=== PATIENT | female | born 1965 | race Caucasian/White ===

== ENCOUNTER 2017-11-25 22:46 | Observation (INO) | payer OTHER ==
--- NOTE | 2017-11-25 23:10 | ED ---
General Adult HPI - General Chief complaint: Chest Pain Stated complaint: chest pain Time Seen by Provider: 11/25/17 23:01 Source: patient, EMS, RN notes reviewed, old records reviewed Mode of arrival: EMS Limitations: no limitations - History of Present Illness Initial comments: This is a 52-year-old female to the ER for event or chest pain. Patient has anterior chest pain left-sided chest pain left jaw pain left back pain. Patient has history of smoking, history of cocaine abuse. Patient has recent history of stents secondary to chest pain and coronary artery disease. Patient' s pain started about 2-1/2 3 hours prior to arrival in the ER and has been consistent. The pain was worse when he came on is little bit better now no diaphoresis no shortness of breath no nausea or vomiting. Patient's pain are now is consistent, just left side of her chest. When it came on it did radiate to her jaw and back. That has resolved - Related Data Home Medications Medication Instructions Recorded Confirmed Acetaminophen Tab [Tylenol Tab] 650 mg PO Q4H PRN MDD 6 tablets 11/25/17 Albuterol Nebulized [Ventolin 2.5 mg INHALATION RT-Q4H PRN 11/25/17 11/26/17 Nebulized] Atorvastatin [Lipitor] 40 mg PO HS 11/25/17 11/26/17 Budesonide/Formoterol Fumarate 2 puff INHALATION RT-DAILY@30 11/25/17 11/26/17 [Symbicort 160-4.5 Mcg Inhaler] Bumetanide 2 mg PO DAILY@0630 PRN 11/25/17 11/26/17 Calcium/Magnesium 2 tab PO TID PRN 11/25/17 11/26/17 Cetirizine HCl [Zyrtec] 10 mg PO DAILY@0630 11/25/17 11/26/17 Clopidogrel [Plavix] 75 mg PO DAILY@0630 11/25/17 11/26/17 DULoxetine HCL [Cymbalta] 60 mg PO BID@0630,1700 11/25/17 11/26/17 Fluticasone Nasal Matthews [Flonase 1 - 2 spray EA NOSTRIL DAILY PRN 11/25/1711/26 Nasal Matthews] Ibuprofen [Motrin] 600 mg PO Q6H PRN 11/25/17 11/26/17 Isosorbide Mononitrate ER [Imdur] 60 mg PO DAILY@0630 11/25/17 11/26/17 Methadone HCl [Methadone Intensol] 115 mg PO QAM 11/25/17 11/26/17 Metoprolol Tartrate [Lopressor] 12.5 mg PO BID@0630,1700 11/25/17 11/26/17 Multivitamins, Thera [Multivitamin 1 tab PO DAILY 11/25/17 11/26/17 (formulary)] Nitroglycerin Sl Tabs [Nitrostat] 0.4 mg SUBLINGUAL Q5M PRN 11/25/17 11/26/17 OXcarbazepine [Trileptal] 300 mg PO TID@0630,1530,2100 11/25/17 11/26/17 Ondansetron HCl [Zofran] 8 mg PO Q6H PRN 11/25/17 11/26/17 PHENobarbital [Luminal] 32.4 mg PO TID@0630,1530,2100 11/25/17 11/26/17 Potassium Chloride ER [K-Dur 10] 10 meq PO DAILY@2100 11/25/17 11/26/17 Ranitidine HCl [Zantac] 150 mg PO BID@0630,1700 11/25/17 11/26/17 Thiamine [Vitamin B-1] 100 mg PO DAILY@1500 11/25/17 11/26/17 Trimethobenzamide [Tigan] 300 mg PO Q6H PRN 11/25/17 11/26/17 traZODone HCL [Desyrel] 50 - 150 mg PO HS 11/25/17 11/26/17 Allergies Allergy/AdvReac Type Severity Reaction Status Date / Time Penicillins Allergy Anaphylaxis Verified 11/26/17 00:26 divalproex sodium AdvReac "ears Verified 11/26/17 00:26 [From Depakote] sensitive" Review of Systems ROS Statement: Those systems with pertinent positive or pertinent negative responses have been documented in the HPI. ROS Other: All systems not noted in ROS Statement are negative. Past Medical History Past Medical History: Chest Pain / Angina, Hyperlipidemia, Hypertension, Seizure Disorder Additional Past Medical History / Comment(s): mitral valve leak History of Any Multi-Drug Resistant Organisms: None Reported Past Surgical History: Cholecystectomy, Heart Catheterization, Heart Catheterization With Stent, Orthopedic Surgery Additional Past Surgical History / Comment(s): jaw surgery 1997 Past Psychological History: Anxiety, Bipolar, Depression Smoking Status: Current every day smoker Past Alcohol Use History: None Reported Past Drug Use History: Cocaine - Past Family History Mother Additional Family Medical History / Comment(s): 3 bypasses, 18 stents Sister(s) Additional Family Medical History / Comment(s): of PAD at 45 Father Additional Family Medical History / Comment(s): lung disease General Exam Limitations: no limitations General appearance: alert, in no apparent distress, anxious Head exam: Present: atraumatic, normocephalic, normal inspection Eye exam: Present: normal appearance, PERRL, EOMI. Absent: scleral icterus, conjunctival injection, periorbital swelling ENT exam: Present: normal exam, mucous membranes moist Neck exam: Present: normal inspection. Absent: tenderness, meningismus, lymphadenopathy Respiratory exam: Present: normal lung sounds bilaterally, wheezes. Absent: respiratory distress, rales, rhonchi, stridor Cardiovascular Exam: Present: regular rate, normal rhythm, normal heart sounds. Absent: systolic murmur, diastolic murmur, rubs, gallop, clicks GI/Abdominal exam: Present: soft, normal bowel sounds. Absent: distended, tenderness, guarding, rebound, rigid Extremities exam: Present: normal inspection, full ROM, normal capillary refill. Absent: tenderness, pedal edema, joint swelling, calf tenderness Back exam: Present: normal inspection Neurological exam: Present: alert, oriented X3, CN II-XII intact Psychiatric exam: Present: normal affect, normal mood Skin exam: Present: warm, dry, intact, normal color. Absent: rash Course Vital Signs 11/25/17 11/25/17 11/26/17 22:48 23:54 00:02 Temperature 99.0 F Pulse Rate 65 54 L 60 Respiratory 16 Rate Blood Pressure 101/58 O2 Sat by Pulse 96 Oximetry 11/26/17 00:14 Temperature 98.0 F Pulse Rate 57 L Respiratory 16 Rate Blood Pressure 104/58 O2 Sat by Pulse 98 Oximetry - Reevaluation(s) Reevaluation #1: 11/25/17 23:27 Patient states she did have recent heart catheterization with stent back in May Reevaluation #2: 11/25/17 23:27 Patient continues with chest pain will continue to repeat EKG EKG Findings - EKG Comments: EKG Findings:: EKG shows normal sinus rhythm rate of 63, SD 122, QRS 64, QTc 448 less than [address] elevation inferiorly. repeat. EKG shows normal sinus rhythm rate of 59, SD 144, QRS 66, QTc 449 same morphology as prior EKG. Repeat. EKG shows normal sinus rhythm of 60, SD 180, QRS 70, QTc 462 Medical Decision Making - Medical Decision Making 52 female to ER with chest pain. Troponin negative EKG and negative patient will be admitted for cardiac observation - Lab Data Result diagrams: 11/27/17 06:28 11/25/17 22:57 Lab Results 11/25/17 11/25/17 11/25/17 Range/Units 22:57 22:57 22:57 WBC 10.2 (3.8-10.6) k/uL RBC 4.27 (3.80-5.40) m/uL Hgb 12.1 (11.4-16.0) gm/dL Hct 37.9 (34.0-46.0) % MCV 88.7 (80.0-100.0) fL MCH 28.4 (25.0-35.0) pg MCHC 32.0 (31.0-37.0) g/dL RDW 13.9 (11.5-15.5) % Plt Count 239 (150-450) k/uL Neutrophils % 62 % Lymphocytes % 27 % Monocytes % 6 % Eosinophils % 3 % Basophils % 1 % Neutrophils # 6.3 (1.3-7.7) k/uL Lymphocytes # 2.7 (1.0-4.8) k/uL Monocytes # 0.7 (0-1.0) k/uL Eosinophils # 0.3 (0-0.7) k/uL Basophils # 0.1 (0-0.2) k/uL PT (9.0-12.0) sec INR (<1.2) APTT (22.0-30.0) sec Sodium 137 (137-145) mmol/L Potassium 4.7 (3.5-5.1) mmol/L Chloride 100 (98-107) mmol/L Carbon Dioxide 27 (22-30) mmol/L Anion Gap 10 mmol/L BUN 18 H (7-17) mg/dL Creatinine 0.80 (0.52-1.04) mg/dL Est GFR (MDRD) Af Amer >60 (>60 ml/min/1.73 sqM) Est GFR (MDRD) Non-Af >60 (>60 ml/min/1.73 sqM) Glucose 93 (74-99) mg/dL Calcium 8.6 (8.4-10.2) mg/dL Magnesium 2.1 (1.6-2.3) mg/dL Total Bilirubin 0.2 (0.2-1.3) mg/dL AST 37 H (14-36) U/L ALT 39 (9-52) U/L Alkaline Phosphatase 189 H (38-126) U/L Total Creatine Kinase 51 (30-135) U/L CK-MB (CK-2) 0.3 (0.0-2.4) ng/mL CK-MB (CK-2) Rel Index 0.6 Troponin I <0.012 (0.000-0.034) ng/mL Total Protein 7.8 (6.3-8.2) g/dL Albumin 3.5 (3.5-5.0) g/dL 11/25/17 Range/Units 22:57 WBC (3.8-10.6) k/uL RBC (3.80-5.40) m/uL Hgb (11.4-16.0) gm/dL Hct (34.0-46.0) % MCV (80.0-100.0) fL MCH (25.0-35.0) pg MCHC (31.0-37.0) g/dL RDW (11.5-15.5) % Plt Count (150-450) k/uL Neutrophils % % Lymphocytes % % Monocytes % % Eosinophils % % Basophils % % Neutrophils # (1.3-7.7) k/uL Lymphocytes # (1.0-4.8) k/uL Monocytes # (0-1.0) k/uL Eosinophils # (0-0.7) k/uL Basophils # (0-0.2) k/uL PT 10.0 (9.0-12.0) sec INR 1.0 (<1.2) APTT 24.3 (22.0-30.0) sec Sodium (137-145) mmol/L Potassium (3.5-5.1) mmol/L Chloride (98-107) mmol/L Carbon Dioxide (22-30) mmol/L Anion Gap mmol/L BUN (7-17) mg/dL Creatinine (0.52-1.04) mg/dL Est GFR (MDRD) Af Amer (>60 ml/min/1.73 sqM) Est GFR (MDRD) Non-Af (>60 ml/min/1.73 sqM) Glucose (74-99) mg/dL Calcium (8.4-10.2) mg/dL Magnesium (1.6-2.3) mg/dL Total Bilirubin (0.2-1.3) mg/dL AST (14-36) U/L ALT (9-52) U/L Alkaline Phosphatase (38-126) U/L Total Creatine Kinase (30-135) U/L CK-MB (CK-2) (0.0-2.4) ng/mL CK-MB (CK-2) Rel Index Troponin I (0.000-0.034) ng/mL Total Protein (6.3-8.2) g/dL Albumin (3.5-5.0) g/dL - Radiology Data Radiology results: report reviewed (S x-rays negative for acute disease), image reviewed Critical Care Time Critical Care Time: Yes Total Critical Care Time: 31 Disposition Clinical Impression: Chest pain Disposition: ADMITTED IP TO THIS [facility] Condition: Undetermined
[2017-11-25 23:19] LABS: Basophils # (A) 0.1 k/uL (0-0.2); Basophils % (A) 1 %; Eosinophils # (A) 0.3 k/uL (0-0.7); Eosinophils % (A) 3 %; HCT 37.9 % (34.0-46.0); HGB 12.1 gm/dL (11.4-16.0); Lymphocytes # (A) 2.7 k/uL (1.0-4.8); Lymphocytes % (A) 27 %; MCH 28.4 pg (25.0-35.0); MCV 88.7 fL (80.0-100.0); Mean Platelet Volume 8.7; Monocytes # (A) 0.7 k/uL (0-1.0); Monocytes % (A) 6 %; Neutrophils # (A) 6.3 k/uL (1.3-7.7); Neutrophils % (A) 62 %; Platelet Count 239 k/uL (150-450); RBC 4.27 m/uL (3.80-5.40); RDW 13.9 % (11.5-15.5); WBC 10.2 k/uL (3.8-10.6)
[2017-11-25 23:27] LABS: Partial Thromboplastin Time 24.3 sec (22.0-30.0)
[2017-11-25 23:28] LABS: ALT 39 U/L (9-52); AST 37 U/L (14-36); Albumin 3.5 g/dL (3.5-5.0); Alkaline Phosphatase 189 U/L (38-126); Anion Gap 10 mmol/L; Blood Urea Nitrogen 18 mg/dL (7-17); Calcium 8.6 mg/dL (8.4-10.2); Carbon Dioxide 27 mmol/L (22-30); Chloride 100 mmol/L (98-107); Glucose 93 mg/dL (74-99); Magnesium 2.1 mg/dL (1.6-2.3); Potassium 4.7 mmol/L (3.5-5.1); Sodium 137 mmol/L (137-145); Total Bilirubin 0.2 mg/dL (0.2-1.3); Total Protein 7.8 g/dL (6.3-8.2)
[2017-11-25] MEDS ORDERED: MORPHINE SULFATE 4 MG/ML SYRINGE IV PRN (23:29)
[2017-11-25] MEDS ORDERED: NITROGLYCERIN SL TABS 0.4 MG TAB SUBLINGUAL PRN (23:29)
[2017-11-25] MEDS ORDERED: HEPARIN SODIUM,PORCINE 5,000 UNIT/ML 1 ML VIAL IV PRN (23:29)
[2017-11-25] MEDS ORDERED: ASPIRIN 81 MG PO STA (23:29)
[2017-11-25] MEDS ORDERED: HEPARIN SODIUM,PORCINE 5,000 UNIT/ML 1 ML VIAL IV ONE (23:29)
[2017-11-25] MEDS ORDERED: IPRATROPIUM-ALBUTEROL 3 ML NEB INHALATION STA (23:30)
[2017-11-25] MEDS ORDERED: HEPARIN SOD,PORK IN 0.45% NACL 25,000 UNIT in 0.45% NACL 1 500ML.BAG IV SCH (23:30)
--- NOTE | 2017-11-25 23:41 | XR ---
EXAM: XR Chest, 2 Views CLINICAL HISTORY: Reason: Chest Pain TECHNIQUE: Frontal and lateral views of the chest. COMPARISON: No relevant prior studies available. FINDINGS: Lungs: Prominent pulmonary vascularity. Mild basilar opacities, possible atelectasis. No confluent consolidation. Pleural space: Unremarkable. No pneumothorax. Heart: Unremarkable. Mediastinum: Unremarkable. Bones/joints: Unremarkable. IMPRESSION: Prominent pulmonary vascularity. Mild basilar opacities, possible atelectasis.
[2017-11-25 23:42] LABS: Creatine Kinase 51 U/L (30-135)
[2017-11-25] MEDS: SODIUM CHLORIDE 0.9% 1,000 ML IV SCH (23:47)
[2017-11-25 23:55] LABS: Creatine Kinase MB 0.3 ng/mL (0.0-2.4); Troponin I <0.012 ng/mL (0.000-0.034)
[2017-11-26 00:39] VITALS: BMI 26.6
[2017-11-26] MEDS: MORPHINE SULFATE 2 MG/ML SYRINGE IV PRN ×4 (01:02→20:59)
[2017-11-26 05:31] LABS: Mean Platelet Volume 8.4; Platelet Count 165 k/uL (150-450)
[2017-11-26 05:43] LABS: Cholesterol 97 mg/dL (<200); HDL Cholesterol 33 mg/dL (40-60); LDL Cholesterol,Calculated 41 mg/dL (0-99); Triglycerides 114 mg/dL (<150)
[2017-11-26 05:59] LABS: Creatine Kinase 44 U/L (30-135)
[2017-11-26 06:13] LABS: Creatine Kinase MB <0.2 ng/mL (0.0-2.4); Troponin I <0.012 ng/mL (0.000-0.034)
--- NOTE | 2017-11-26 07:31 | HP ---
HISTORY AND PHYSICAL CHIEF COMPLAINT: A 52-year-old white female with chest pain. HISTORY OF PRESENT ILLNESS: A 52-year-old white female who came to the ER for chest pain, anterior left-sided chest pain, jaw pain, left jaw pain and left back pain. She has history of smoking history, history of cocaine abuse, history of stents. Chest pain with coronary artery disease started 2-1/2 hours ago, came to the ER in constant pain. Came to the ER, was admitted for chest pain to rule out myocardial infarction. Cardiology consult. HOME MEDICATIONS: Home medications include: 1. Tylenol. 2. Ventolin. 3. Lipitor. 4. Symbicort. 5. Bumetanide. 6. Magnesium. 7. Zyrtec. 8. Plavix. 9. Cymbalta. 10.Flonase. 11.Motrin. 12.Imdur. 13.Methadone. 14.Lopressor. 15.Trileptal,. 16.Zofran. 17.K-Dur. 18.Zantac. 19.Vitamin B1. 20.Tigan. 21.Desyrel. ALLERGIES: PENICILLIN, DEPAKOTE. REVIEW OF SYSTEMS: Fourteen-point review of systems negative except for mentioned in HPI. PAST MEDICAL HISTORY: Hypertension, dyslipidemia, seizure disorder, atypical chest pain, mitral valve leak, heart surgery, catheterization, cholecystectomy, stent, orthopedic surgery, history of anxiety, bipolar, depression, jaw surgery. Current everyday smoker. Uses cocaine. PHYSICAL EXAMINATION: Temperature 99, pulse 65, respiratory rate 16 to 18, blood pressure low 100s over 50s to 60s, O2 of 96% on room air. HEENT: Normocephalic, atraumatic. OPHTHALMOLOGIC: Pupils equal, round, reactive to light and accommodation. NEUROLOGIC: Alert and oriented x3. LUNGS: Show normal lung sounds. Scattered rhonchi. HEART: S1, S2 without any murmurs, rubs or gallops GI: Soft, nontender. EXTREMITIES: No cyanosis, clubbing, edema. NEUROLOGIC: Alert and oriented x3. PSYCH: Fair mood and affect. ASSESSMENT: 1. Atypical chest pain. 2. History of cocaine abuse. Multiple labs are reviewed, rule out myocardial infarction. When is cleared by Cardiology, she will be able to be discharged home. MMODL / IJN: [id number] /
[2017-11-26] MEDS ORDERED: TRIMETHOBENZAMIDE 300 MG CAP PO PRN (08:27)
[2017-11-26] MEDS ORDERED: MAGNESIUM PO PRN (08:27)
[2017-11-26] MEDS ORDERED: FLUTICASONE 50MCG/SPRAY NASAL 16GM EA NOSTRIL PRN (08:27)
[2017-11-26] MEDS ORDERED: CALCIUM PO PRN (08:27)
[2017-11-26] MEDS ORDERED: ONDANSETRON 4 MG TAB PO PRN (08:27)
[2017-11-26] MEDS ORDERED: BUMETANIDE 1 MG TAB PO PRN (08:27)
[2017-11-26] MEDS ORDERED: ACETAMINOPHEN TAB 325 MG TAB PO PRN (08:27)
[2017-11-26] MEDS ORDERED: ASPIRIN 325 MG TAB PO SCH (09:00)
[2017-11-26] MEDS: IPRATROPIUM-ALBUTEROL 3 ML NEB INHALATION PRN ×3 (09:14→19:39)
[2017-11-26] MEDS: SYMBICORT 160-4.5 MCG INHALER INHALATION SCH (09:14)
--- NOTE | 2017-11-26 09:33 | P.CRDCN ---
History of Present Illness Consult date: 11/26/17 History of present illness: Mrs. Fierro is a pleasant 52-year-old female with past medical history significant for hypertension, dyslipdiemia, coronary artery disease, anxiety and chronic drug and tobacco abuse. She states she snorts cocaine on a regular basis and smokes 6-8 cigarettes per day. She follows with a tobacco weigher in [place] Dr. Tavarez and states she recently had a catheterization in May of this year and also was told she has a 50% blockage. She complains of chest pain that started last night around 2029 with a tightness in her chest that radiated to her jaw, shoulder, left arm and back. She c/o associated shortness of breath, nausea and diaphoresis. She denies palpitations or dizziness. She is currently a resident at [facility] for drug rehabilitation. EKG on arrival reveals sinus mechanism with no acute ST or T-wave abnormalities. Chest xray reveals prominent pulmonary vascularity with mild basilar opacities, probably atelectasis. Laboratory data reviewed, hemoglobin 12.1, platelets 165, potassium 4.7, magnesium 2.1, creatinine 0.8, cardiac enzymes negative 2, LDL 41, HDL 33. Current cardiac medications include potassium 10 daily, Lopressor 12.5 mg twice a day, Imdur 60 mg daily, Plavix 75 mg daily, atorvastatin 40 mg daily. Review of Systems CONSTITUTIONAL: Denies fever. Denies chills. EYES: Denies blurred vision. Denies vision changes. Denies eye pain. EARS, NOSE, MOUTH & THROAT: Denies headache. Denies sore throat. Denies ear pain. CARDIOVASCULAR: Denies chest pain. Denies shortness of breath. Denies orthopnea. Denies PND. Denies palpitations. RESPIRATORY: Denies cough. GASTROINTESTINAL: Denies abdominal pain. Denies diarrhea. Denies constipation. Denies nausea. Denies vomiting. MUSCULOSKELETAL: Denies myalgias. INTEGUMENTARY: Denies pruitis. Denies rash. NEUROLOGIC: Denies numbness. Denies tingling. Denies weakness. PSYCHIATRIC: Denies anxiety. Denies depression. ENDOCRINE: Denies fatigue. Denies weight change. Denies polydipsia. Denies polyurina. GENITOURINARY: Denies burning, hematuria or urgency with micturation. HEMATOLOGIC: Denies history of anemia. Denies bleeding. Past Medical History Past Medical History: Chest Pain / Angina, Hyperlipidemia, Hypertension, Seizure Disorder Additional Past Medical History / Comment(s): mitral valve leak History of Any Multi-Drug Resistant Organisms: None Reported Past Surgical History: Cholecystectomy, Heart Catheterization, Heart Catheterization With Stent, Orthopedic Surgery Additional Past Surgical History / Comment(s): jaw surgery 1997 Past Anesthesia/Blood Transfusion Reactions: No Reported Reaction Date of Last Stent Placement:: Smoking Status: Current every day smoker - Past Family History Mother Additional Family Medical History / Comment(s): 3 bypasses, 18 stents Sister(s) Additional Family Medical History / Comment(s): of PAD at 45 Father Additional Family Medical History / Comment(s): lung disease Medications and Allergies Home Medications Medication Instructions Recorded Confirmed Type Acetaminophen Tab [Tylenol Tab] 650 mg PO Q4H PRN MDD 6 tablets 11/25/17 History Albuterol Nebulized [Ventolin 2.5 mg INHALATION RT-Q4H PRN 11/25/17 11/26/17 History Nebulized] Atorvastatin [Lipitor] 40 mg PO HS 11/25/17 11/26/17 History Budesonide/Formoterol Fumarate 2 puff INHALATION RT-DAILY@62911/25/17 History [Symbicort 160-4.5 Mcg Inhaler] Bumetanide 2 mg PO DAILY@0630 PRN 11/25/17 11/26/17 History Calcium/Magnesium 2 tab PO TID PRN 11/25/17 11/26/17 History Cetirizine HCl [Zyrtec] 10 mg PO DAILY@0630 11/25/17 11/26/17 History Clopidogrel [Plavix] 75 mg PO DAILY@0630 11/25/17 11/26/17 History DULoxetine HCL [Cymbalta] 60 mg PO BID@0630,1700 11/25/17 11/26/17 History Fluticasone Nasal Howell [Flonase 1 - 2 spray EA NOSTRIL DAILY PRN 11/25/1711/26 History Nasal Howell] Ibuprofen [Motrin] 600 mg PO Q6H PRN 11/25/17 11/26/17 History Isosorbide Mononitrate ER [Imdur] 60 mg PO DAILY@0630 11/25/17 11/26/17 History Methadone HCl [Methadone Intensol] 115 mg PO QAM 11/25/17 11/26/17 History Metoprolol Tartrate [Lopressor] 12.5 mg PO BID@0630,1700 11/25/17 11/26/17 History Multivitamins, Thera [Multivitamin 1 tab PO DAILY 11/25/17 11/26/17 History (formulary)] Nitroglycerin Sl Tabs [Nitrostat] 0.4 mg SUBLINGUAL Q5M PRN 11/25/17 11/26/17 History OXcarbazepine [Trileptal] 300 mg PO TID@0630,1530,2100 11/25/17 11/26/17 History Ondansetron HCl [Zofran] 8 mg PO Q6H PRN 11/25/17 11/26/17 History PHENobarbital [Luminal] 32.4 mg PO TID@0630,1530,2100 11/25/17 11/26/17 History Potassium Chloride ER [K-Dur 10] 10 meq PO DAILY@2100 11/25/17 11/26/17 History Ranitidine HCl [Zantac] 150 mg PO BID@0630,1700 11/25/17 11/26/17 History Thiamine [Vitamin B-1] 100 mg PO DAILY@1500 11/25/17 11/26/17 History Trimethobenzamide [Tigan] 300 mg PO Q6H PRN 11/25/17 11/26/17 History traZODone HCL [Desyrel] 50 - 150 mg PO HS 11/25/17 11/26/17 History Allergies Allergy/AdvReac Type Severity Reaction Status Date / Time Penicillins Allergy Anaphylaxis Verified 11/26/17 00:26 divalproex sodium AdvReac "ears Verified 11/26/17 00:26 [From Depakote] sensitive" Physical Exam Vitals: Vital Signs Temp Pulse Pulse Resp BP BP Pulse Ox 11/26/17 08:47 101/56 11/26/17 08:00 97.8 F 64 18 84/53 97 11/26/17 04:00 97.7 F 63 18 97/52 100 11/26/17 01:00 18 11/26/17 00:40 97.9 F 61 18 92/55 99 11/26/17 00:14 98.0 F 57 L 16 104/58 98 11/26/17 00:02 60 11/25/17 23:54 54 L 11/25/17 22:48 99.0 F 65 16 101/58 96 Intake and Output 11/25/17 11/26/17 11/26/17 22:59 06:59 14:59 Intake Total 110.263 Balance 110.263 Intake: Intake, IV Titration 110.263 Amount Heparin Sod,Pork in 0.45% 110.263 NaCl 25,000 unit In 0.45 % NaCl 1 500ml.bag @ 12 UNITS/KG/HR 17.41 mls/hr IV .Q24H [facility] Rx#: [id number] Other: Weight 72.575 kg 72.5 kg Blood pressure 101/56 heart rate 64 afebrile GENERAL: This is a 52-year-old female in no apparent distress at the time of my examination. HEENT: Head is atraumatic, normocephalic. Pupils are equal, round. Sclerae anicteric. Conjunctivae are clear. Mucous membranes of the mouth are moist. Neck is supple. There is no jugular venous distention. No carotid bruit is heard. LUNGS: Clear to auscultation no wheezes, rales or rhonchi. No chest wall tenderness is noted on palpation or with deep breathing. HEART: Regular rate and rhythm with murmur at the apex, no rubs or gallops. S1 and S2 heard. ABDOMEN: Soft, nontender. Bowel sounds are heard. No organomegaly noted. EXTREMITIES: 2+ peripheral pulses with no evidence of peripheral edema and no calf tenderness noted. NEUROLOGIC: Patient is awake, alert and oriented x3. Results 11/26/17 05:10 11/25/17 22:57 Cardiac Enzymes 11/25/17 11/25/17 11/26/17 Range/Units 22:57 22:57 05:10 AST 37 H (14-36) U/L CK-MB (CK-2) 0.3 <0.2 (0.0-2.4) ng/mL Troponin I <0.012 <0.012 (0.000-0.034) ng/mL Coagulation 11/25/17 11/26/17 Range/Units 22:57 05:10 PT 10.0 (9.0-12.0) sec APTT 24.3 35.6 H (22.0-30.0) sec Lipids 11/26/17 Range/Units 05:10 Triglycerides 114 (<150) mg/dL Cholesterol 97 (<200) mg/dL HDL Cholesterol 33 L (40-60) mg/dL CBC 11/25/17 11/26/17 Range/Units 22:57 05:10 WBC 10.2 (3.8-10.6) k/uL RBC 4.27 (3.80-5.40) m/uL Hgb 12.1 (11.4-16.0) gm/dL Hct 37.9 (34.0-46.0) % Plt Count 239 165 (150-450) k/uL Comprehensive Metabolic Panel 11/25/17 Range/Units 22:57 Sodium 137 (137-145) mmol/L Potassium 4.7 (3.5-5.1) mmol/L Chloride 100 (98-107) mmol/L Carbon Dioxide 27 (22-30) mmol/L BUN 18 H (7-17) mg/dL Creatinine 0.80 (0.52-1.04) mg/dL Glucose 93 (74-99) mg/dL Calcium 8.6 (8.4-10.2) mg/dL AST 37 H (14-36) U/L ALT 39 (9-52) U/L Alkaline Phosphatase 189 H (38-126) U/L Total Protein 7.8 (6.3-8.2) g/dL Albumin 3.5 (3.5-5.0) g/dL Current Medications Generic Name Dose Route Start Last Admin Trade Name Freq PRN Reason Stop Dose Admin Acetaminophen 650 mg 11/26/17 08:27 Tylenol Tab PO Q4H PRN Pain Albuterol/Ipratropium 3 ml 11/25/17 23:30 11/26/17 09:14 Duoneb 0.5 Mg-3 Mg/3 Ml Soln INHALATION 3 ml RT-QID PRN Administration Shortness Of Breath Or Wheezing Aspirin 325 mg 11/26/17 09:00 Aspirin PO DAILY [facility] Atorvastatin Calcium 40 mg 11/26/17 21:00 Lipitor PO HS [facility] Budesonide/Formoterol Fumarate 2 puff 11/27/17 06:30 11/26/17 09:14 Symbicort 160-4.5 Mcg Inhaler INHALATION 2 puff RT-DAILY@0630 [facility] Administration Bumetanide 2 mg 11/26/17 08:27 Bumex PO DAILY@0630 PRN Edema Clopidogrel Bisulfate 75 mg 11/27/17 06:30 Plavix PO DAILY@0630 [facility] Duloxetine HCl 60 mg 11/26/17 17:00 Cymbalta PO BID@0630,1700 [facility] Famotidine 20 mg 11/26/17 17:00 Pepcid PO BID@0630,1700 [facility] Fluticasone Propionate 2 spray 11/26/17 08:27 Flonase Nasal [place]ell EA NOSTRIL DAILY PRN Allergy Symptoms Heparin Sodium (Porcine) 0 unit 11/25/17 23:29 Heparin IV Q6HR PRN Low PTT Protocol Heparin Sodium/Sodium Chloride 500 mls @ 17.41 mls/hr 11/25/17 23:30 06:05 25,000 unit/ Sodium Chloride IV 15 units/kg/hr .Q24H YFN 21.77 mls/hr Protocol Titration 12 UNITS/KG/HR Sodium Chloride 1,000 mls @ 100 mls/hr 11/25/17 23:30 11/25/17 23:47 Saline 0.9% IV 100 mls/hr .Q10H [facility] Administration Isosorbide Mononitrate 60 mg 11/27/17 06:30 Imdur PO DAILY@0630 [facility] Loratadine 10 mg 11/27/17 06:30 Claritin PO DAILY@0630 [facility] Methadone HCl 110 mg 11/26/17 09:15 Dolophine PO QAM [facility] Methadone HCl 5 mg 11/26/17 09:15 Dolophine PO QAM [facility] Metoprolol Tartrate 12.5 mg 11/26/17 17:00 Lopressor PO BID@0630,1700 [facility] Morphine Sulfate 4 mg 11/25/17 23:33 11/26/17 08:33 Morphine Sulfate (Inj) IV 4 mg Q5M PRN Administration Chest Pain Multivitamins 1 each 11/26/17 12:00 Theragran PO DAILY@1200 [facility] Nitroglycerin 0.4 mg 11/25/17 23:29 Nitrostat SUBLINGUAL Q5M PRN Chest Pain Non-Formulary Medication 2 tab 01/11/18 08:27 Calcium/Magnesium PO TID PRN Muscle cramps Ondansetron HCl 8 mg 11/26/17 08:27 Zofran PO Q6H PRN Nausea Oxcarbazepine 300 mg 11/26/17 15:30 Trileptal PO TID@0630,1530,2100 [facility] Phenobarbital 32.4 mg 11/26/17 15:30 Luminal PO TID@0630,1530,2100 [facility] Potassium Chloride 10 meq 11/26/17 21:00 K-Dur 10 PO DAILY@2100 YFN Thiamine HCl 100 mg 11/26/17 15:00 Vitamin B-1 PO DAILY@1500 YFN Trazodone HCl 100 mg 11/26/17 21:00 Desyrel PO HS YFN Trimethobenzamide HCl 300 mg 11/26/17 08:27 Tigan PO Q6H PRN Intake and Output 11/25/17 11/26/17 11/26/17 22:59 06:59 14:59 Intake Total 110.263 Balance 110.263 Intake: Intake, IV Titration 110.263 Amount Heparin Sod,Pork in 0.45% 110.263 NaCl 25,000 unit In 0.45 % NaCl 1 500ml.bag @ 12 UNITS/KG/HR 17.41 mls/hr IV .Q24H [facility] Rx#: [id number] Other: Weight 72.575 kg 72.5 kg 11/26/17 05:10 11/25/17 22:57 Assessment and Plan Assessment: ASSESSMENT 1. Unstable angina. Cardiac enzymes are negative and EKG is normal. 2. History of coronary artery disease with recent stenting in May at [facility] 3. Essential hypertension 4. Dyslipidemia 5. Anxiety 6. Chronic tobacco abuse 7. Chronic drug abuse with cocaine PLAN Obtain 2-D echocardiogram and Doppler study to assess cardiac structure and function. Obtain records from [facility] recent cardiac catheterization as well as information from her primary tobacco weigher Dr. Tavarez. Records can be reviewed we will determine further course of action. Possible cardiac catheterization tomorrow once records have been reviewed. Thank you kindly for this consultation. The above impression and plan of care have been discussed and directed by the signing physician. Jenny Servin, nurse practitioner, acting as scribe for signing physician.
[2017-11-26] MEDS: METHADONE 5 MG TAB PO SCH (10:44)
[2017-11-26] MEDS: METHADONE 10 MG TAB PO SCH (10:45)
[2017-11-26] MEDS ORDERED: ALPRAZolam 0.25 MG TAB PO PRN (10:46)
[2017-11-26] MEDS ORDERED: ALPRAZolam 0.5 MG TAB PO PRN (10:46)
[2017-11-26] MEDS ORDERED: SODIUM CHLORIDE 0.9% 1,000 ML in EMPTY BAG 1 BAG IV ONE (10:46)
--- NOTE | 2017-11-26 11:12 | ECHOF ---
Referral Reason:chest pain MEASUREMENTS -------- HEIGHT: 165.1 cm WEIGHT: 72.1 kg BP: 101/56 RVIDd: 2.5 cm (< 3.3) IVSd: 0.8 cm (0.6 - 1.1) LVIDd: 4.3 cm (3.9 - 5.3) LVPWd: 1.0 cm (0.6 - 1.1) IVSs: 1.1 cm LVIDs: 2.7 cm LVPWs: 1.5 cm LA Diam: 3.2 cm (2.7 - 3.8) LAESV Index (A-L): 22.63 ml/m Ao Diam: 3.2 cm (2.0 - 3.7) AV Cusp: 2.5 cm (1.5 - 2.6) EPSS: 0.2 cm MV E Abhishek: 1.08 m/s MV DecT: 270 ms MV A Abhishek: 0.91 m/s MV E/A Ratio: 1.18 MV EF SLOPE: 100.00 mm/s (70 - 150) MV EXCURSION: 1.82 cm (> 18.000) FINDINGS -------- Sinus rhythm. This was a technically good study. The left ventricular size is normal. Left ventricular wall thickness is normal. Overall left vent ricular systolic function is normal with, an EF between 60 - 65 %. The right ventricle is normal in size. Normal LA size by volume 22+/-6 ml/m2. The right atrium is normal in size. There is mild aortic valve sclerosis. Trace to mild aortic regurgitation. The mitral valve is normal. The tricuspid valve appears structurally normal. No regurgitation noted Trace/mild (physiologic) pulmonic regurgitation. The aortic root size is normal. Normal inferior vena cava with normal inspiratory collapse consistent with estimated right atrial pre ssure of 5 mmHg. There is no pericardial effusion. CONCLUSIONS -------- 1. Sinus rhythm. 2. This was a technically good study. 3. The left ventricular size is normal. 4. Left ventricular wall thickness is normal. 5. Overall left ventricular systolic function is normal with, an EF between 60 - 65 %. 6. The right ventricle is normal in size. 7. Normal LA size by volume 22+/-6 ml/m2. 8. The right atrium is normal in size. 9. There is mild aortic valve sclerosis. 10. Trace to mild aortic regurgitation. 11. The mitral valve is normal. 12. The tricuspid valve appears structurally normal. 13. No regurgitation noted 14. Trace/mild (physiologic) pulmonic regurgitation. 15. The aortic root size is normal. 16. Normal inferior vena cava with normal inspiratory collapse consistent with estimated right atrial pressure of 5 mmHg. 17. There is no pericardial effusion. RN DERMATOLOGY: TRISTAN Chadwick
[2017-11-26 12:41] LABS: Creatine Kinase 49 U/L (30-135)
[2017-11-26 12:53] LABS: Creatine Kinase MB <0.2 ng/mL (0.0-2.4); Troponin I <0.012 ng/mL (0.000-0.034)
[2017-11-26] MEDS: SODIUM CHLORIDE 0.9% 1,000 ML IV SCH ×2 (13:36→20:46)
[2017-11-26] MEDS: MULTIVITAMINS, THERA 1 EACH TAB PO SCH (13:42)
[2017-11-26] MEDS: THIAMINE 100 MG TAB PO SCH (15:05)
[2017-11-26] MEDS: OXcarbazepine 300 MG TAB PO SCH ×2 (15:05→20:48)
[2017-11-26] MEDS: PHENobarbital 32.4 MG TAB PO SCH ×2 (15:23→21:11)
[2017-11-26] MEDS: DULoxetine HCL 60 MG CAPSULE.DR PO SCH (16:46)
[2017-11-26] MEDS: METOPROLOL TARTRATE 12.5 MG TAB PO SCH (16:46)
[2017-11-26] MEDS: DOCUSATE 100 MG CAP PO SCH (16:46)
[2017-11-26] MEDS: FAMOTIDINE 20 MG TAB PO SCH (16:46)
[2017-11-26] MEDS: NICOTINE 14MG/24HR PATCH TRANSDERM SCH (16:47)
[2017-11-26] MEDS ORDERED: ATORVASTATIN 40 MG TAB PO SCH (21:00)
[2017-11-26] MEDS ORDERED: POTASSIUM CHLORIDE ER 10 MEQ TAB.ER.PRT PO SCH (21:00)
[2017-11-26] MEDS ORDERED: traZODone HCL 100 MG TAB PO SCH (21:00)
[2017-11-26] MEDS ORDERED: HEPARIN SOD,PORK IN 0.45% NACL 25,000 UNIT in 0.45% NACL 1 500ML.BAG IV SCH (21:15)
[2017-11-27] MEDS: MORPHINE SULFATE 2 MG/ML SYRINGE IV PRN ×2 (03:37→07:13)
[2017-11-27] MEDS: METOPROLOL TARTRATE 12.5 MG TAB PO SCH ×2 (05:01→17:01)
[2017-11-27] MEDS: METHADONE 10 MG TAB PO SCH (05:01)
[2017-11-27] MEDS: METHADONE 5 MG TAB PO SCH (05:02)
[2017-11-27] MEDS ORDERED: ATORVASTATIN 80 MG TAB PO ONE (06:00)
[2017-11-27] MEDS ORDERED: ISOSORBIDE MONONITRATE ER 60 MG TAB.ER.24H PO SCH (06:30)
[2017-11-27] MEDS ORDERED: CLOPIDOGREL 75 MG TAB PO SCH (06:30)
[2017-11-27] MEDS ORDERED: LORATADINE 10 MG TAB PO SCH (06:30)
[2017-11-27 07:07] LABS: Mean Platelet Volume 8.8; Platelet Count 146 k/uL (150-450)
[2017-11-27] MEDS ORDERED: LIDOCAINE 2% INJ 20 MG/ML (20 ML MDV) ONE (07:20)
[2017-11-27] MEDS ORDERED: MIDAZOLAM 2 MG/2 ML VIAL ONE (07:32)
[2017-11-27] MEDS ORDERED: IV FLUID CONTINUATION 1,000 ML IV ONE (07:40)
[2017-11-27] MEDS ORDERED: CLOPIDOGREL 75 MG TAB PO ONE (07:40)
[2017-11-27] MEDS ORDERED: CLOPIDOGREL 75 MG TAB ONE (07:40)
[2017-11-27] MEDS: MIDAZOLAM 2 MG/2 ML VIAL IVP ONE ×2 (07:44→07:48)
[2017-11-27] MEDS ORDERED: LIDOCAINE 2% INJ 20 MG/ML SQ ONE (07:47)
[2017-11-27] MEDS ORDERED: RX INFO: IV CONTRAST WAS GIVEN 1 EACH MISC MISCELLANE PRN (08:06)
[2017-11-27] MEDS ORDERED: IOHEXOL 350 MG/ML 125ML BOTTLE INJ ONE (08:07)
[2017-11-27] MEDS ORDERED: SODIUM CHLORIDE 0.9% 1,000 ML IV SCH (08:15)
[2017-11-27 08:33] VITALS: TEMP 98.2
[2017-11-27] MEDS: DOCUSATE 100 MG CAP PO SCH (08:33)
[2017-11-27] MEDS: DULoxetine HCL 60 MG CAPSULE.DR PO SCH (08:33)
[2017-11-27] MEDS: OXcarbazepine 300 MG TAB PO SCH ×2 (08:33→17:01)
[2017-11-27] MEDS: FAMOTIDINE 20 MG TAB PO SCH ×2 (08:33→17:01)
--- NOTE | 2017-11-27 08:38 | CC ---
CARDIAC CATHETERIZATION REPORT INDICATION: Unstable angina in a patient with known CAD status post prior angioplasty of right coronary artery. PROCEDURE NOTE: After obtaining informed consent, left heart catheterization and coronary angiogram were performed with the right femoral artery using standard Bala catheters. The patient tolerated the procedure well without any obvious immediate complications. FINDINGS: HEMODYNAMICS: Left ventricular end-diastolic pressure is 12-16 mm. There is no significant gradient across aortic valve. LEFT VENTRICULOGRAM: Left ventriculogram is not performed. ANGIOGRAPHIC DATA: 1. Left main coronary artery: Left main coronary artery is a normal-sized vessel and is free of stenosis. Divides into left anterior descending coronary artery and circumflex coronary artery. 2. LAD and its branches, circumflex coronary artery and its branches are free of significant stenosis. 3. Right coronary artery is a small nondominant vessel and this was previously stented in the proximal part. The stent appears patent. The distal vessel is a very small caliber vessel. CONCLUSIONS: Patent stent within the right coronary artery. PLAN: The patient's management is going to be in the form of continued medical therapy and aggressive risk factor modification. A femoral angiogram was performed and Angio-Seal was deployed for hemostasis at the end of the procedure. Patient received moderate conscious sedation. The total sedation time was 15 minutes. MMODL / IJN: [id number] /
[2017-11-27] MEDS: PHENobarbital 32.4 MG TAB PO SCH ×2 (08:46→17:01)
[2017-11-27] MEDS ORDERED: ASPIRIN 81 MG PO SCH (09:00)
[2017-11-27] MEDS: SODIUM CHLORIDE 0.9% 1,000 ML IV SCH (10:40)
[2017-11-27] MEDS: NICOTINE 14MG/24HR PATCH TRANSDERM SCH (10:42)
[2017-11-27] MEDS: IPRATROPIUM-ALBUTEROL 3 ML NEB INHALATION PRN (11:12)
[2017-11-27] MEDS: SYMBICORT 160-4.5 MCG INHALER INHALATION SCH (11:15)
[2017-11-27 12:27] LABS: Glucose,Whole Blood 130 mg/dL (75-99)
[2017-11-27] MEDS: MULTIVITAMINS, THERA 1 EACH TAB PO SCH (12:43)
[2017-11-27] MEDS: THIAMINE 100 MG TAB PO SCH (17:01)
[2017-11-27 17:04] VITALS: BP 105/54; PULSE 56; RESP 18
[2017-11-27] MEDS ORDERED: ATORVASTATIN 40 MG TAB PO SCH (21:00)
[2017-11-28] MEDS ORDERED: ATORVASTATIN 40 MG TAB PO SCH (21:00)
== END 2017-11-27 17:15 ==
LOC: SUPCPDRO 22:46 → EC 22:46 → 3OBS 23:30
PROVIDERS: ADMIT Family Medicine; ATTEND Family Medicine
DX: I25.110 Atherosclerotic heart disease of native coronary artery with unstable angina pectoris (principal); F14.10 Cocaine abuse, uncomplicated; I10 Essential (primary) hypertension; G40.909 Epilepsy, unspecified, not intractable, without status epilepticus; E78.5 Hyperlipidemia, unspecified; F41.9 Anxiety disorder, unspecified; F31.9 Bipolar disorder, unspecified; F17.200 Nicotine dependence, unspecified, uncomplicated; Z95.5 Presence of coronary angioplasty implant and graft; Z79.899 Other long term (current) drug therapy; Z79.51 Long term (current) use of inhaled steroids; Z79.02 Long term (current) use of antithrombotics/antiplatelets; Z88.0 Allergy status to penicillin; Z88.8 Allergy status to other drugs, medicaments and biological substances; Z82.49 Family history of ischemic heart disease and other diseases of the circulatory system; Z79.891 Long term (current) use of opiate analgesic
CPT/HCPCS: 96361; 96366 ×2; 96375; 96376 ×3; 96365; 99291; 36415; 94640 ×4; 93005; 93306; 93458; 80061; 80053; 82550 ×2; 82553 ×2; 83735; 84484 ×2; 85025; 85049 ×2; 85610; 85730 ×2; 71046; G0378 ×3; C1760; C1894; C1769; S4990 ×2; J2001; J2250; J1644 ×3; J2270 ×2; S0109 ×4; Q9967